=== PATIENT | female | born 1995 | race Caucasian/White ===

== ENCOUNTER 2018-08-09 18:09 | Emergency (ER) | payer BC ==
[~2018-08-09] VITALS: Ht 160 cm; Wt 74.8 kg
[2018-08-09 18:20] VITALS: Ht 160 cm; Wt 74.8 kg
[2018-08-09 20:08] VITALS: BP 125/73
== END 2018-08-09 20:08 | disposition home or self-care (01) ==
LOC: ED 18:09
DX: O23.41 Unspecified infection of urinary tract in pregnancy, first trimester (principal); Z3A.01 Less than 8 weeks gestation of pregnancy